=== PATIENT | female | born 1980 | race Caucasian/White ===

== ENCOUNTER → 2016-06-18 | Outpatient (CLI) | payer OTHER | LOC: RAD 19:32 | PROVIDERS: ATTEND Podiatrist Foot Surgery | DX: M79.671 Pain in right foot (principal) | CPT/HCPCS: 73720; A9577 ==

== ENCOUNTER → 2016-06-24 | Outpatient (CLI) | payer OTHER | LOC: RAD 09:11 | PROVIDERS: ATTEND Podiatrist Foot Surgery | DX: M25.571 Pain in right ankle and joints of right foot (principal); G90.521 Complex regional pain syndrome I of right lower limb | CPT/HCPCS: 78315; A9503; Q9969 ==

== ENCOUNTER 2016-08-06 07:32 | Day surgery (SDC) | payer OTHER ==
[~2016-08-06 07:32] MED LIST: CLINDAMYCIN 600 MG/D5W RTU 600 MG/50 ML RTUPB IV PRN
[2016-08-06] MEDS ORDERED: MIDAZOLAM 2 MG/2 ML INJ ONE ×2 (09:00)
[2016-08-06] MEDS ORDERED: FENTANYL CITRATE INJ/PF 100 MCG/2 ML AMPUL ONE (09:01)
[2016-08-06] MEDS ORDERED: PROPOFOL INJ 200 MG/20 ML VIAL IV ONE (09:01)
[2016-08-06] MEDS ORDERED: LIDOCAINE 2% INJ (20 MG/ML) 20 ML MDV ONE (09:04)
[2016-08-06] MEDS ORDERED: BUPIVACAINE HCL 0.5 % INJ/PF 30 ML SDV ONE (09:04)
[2016-08-06] MEDS: NORMAL SALINE INJ/PF 0.9% 10 ML SDV ONE ×2 (10:36→10:46)
[2016-08-06] MEDS: BACITRACIN INJ 50,000 UNIT VIAL ONE ×2 (10:36→10:46)
[2016-08-06] MEDS: POLYMYXIN B SULFATE INJ 500000 UNIT VIAL ONE ×2 (10:36→10:46)
[2016-08-06] MEDS: BUPIVACAINE INJ/PF LIPOSOME/PF 266 MG/20 ML SDV ONE ×2 (10:40→10:45)
--- NOTE | 2016-08-06 12:03 | [facility] OPERATIVE REPORT E ---
[facility] Operative Report NAME: TUNDE GARCÍA AGE: 36Y DATE OF SURGERY: ROOM: PREOPERATIVE DIAGNOSIS: Pain in the first metatarsophalangeal joint, right foot. POSTOPERATIVE DIAGNOSIS: Pain in the first metatarsophalangeal joint, right foot. OPERATION: Open biopsy of the first metatarsal head, right foot. SURGEON: NISHA RIBEIRO DPM NETWORK ASSOCIATE: FRANCIA LONGORIA DPM PROCEDURE: Following induction of IV regional local anesthesia, the right foot and leg were prepped and draped in the usual sterile manner. Pneumatic tourniquet was inflated to 250 mmHg. After exsanguination of the limb with the Esmarch bandage, the surgical procedure was then performed. OPEN BIOPSY, FIRST METATARSAL HEAD, RIGHT FOOT: Attention was directed to the dorsal aspect of the first metatarsophalangeal joint where the original skin incision, which was approximately 4 cm in length was excised via sharp dissection. The capsule was then incised sharply in the same manner as the original skin incision, and it was done lateral-medial to the extensor hallucis longus tendon. The capsule was then freed medially and laterally from the bone. It was noted that there was a foreign body, a small piece of otrnnu-[id number]-[id number] material. It was approximately maybe a centimeter in length. This was sent to pathology to determine what it was. There was also a yellowish inflammatory fluid that was noted in the joint, and this was cultured. Utilizing a Jamshidi bone biopsy, biopsy was taken from the dorsolateral aspect of the first metatarsal head and another bone biopsy was taken from the dorsomedial aspect of the first metatarsal head. Biopsies were then sent for pathology and for culture. The area was then flushed with copious amounts of antibacterial saline solution. The capsule was then coapted and maintained utilizing simple interrupted sutures of 3-0 Vicryl. The subcutaneous tissue was then infiltrated along the entire incision; approximately 10 mL of Exparel. The subcutaneous tissue was coapted and maintained utilized simple interrupted sutures of 4-0 Vicryl, and the skin was coapted and maintained utilizing horizontal mattress sutures of 5-0 nylon. The foot was then cleansed utilizing an alcohol foam. Dry sterile dressing was then applied consisting of George silk, 4 x 4s, Conform, Kerlix, and Coban. The pneumatic tourniquet was released. It was noted that all digits were warm and viable, and patient was transferred to the recovery room. DICTATING PHYSICIAN: NISHA RIBEIRO D.P.M. [id number] PHY#: [id number] ID: [id number] JOB#: [id number] ACCT: [id number] cc:SAMANTHA ANTONIO DPM >
--- NOTE | 2016-08-06 12:11 | [facility] DISCHARGE SUMMARY E ---
[facility] Discharge Summary NAME: TUNDE GARCÍA AGE: 36Y ADMITTED: 08/06/2016 DISCHARGED: 08/06/2016 SURGICAL PROCEDURE: Open bone biopsy first metatarsal head, right foot. POSTOPERATIVE DIAGNOSIS: Chronic pain in the first metatarsophalangeal joint, right foot. HOSPITAL COURSE: The patient was admitted to [facility] with chief complaint of chronic pain in the first metatarsophalangeal joint and along the first metatarsal of her right foot. She had undergone a simple bunionectomy in the end of February of 2016 at [facility] and she had been complaining of continued pain throughout. The patient had a MRI and bone scan. The MRI showed that there could be a possible foreign body and it was also determined to do bone biopsies at that time. The underwent the above surgical procedure without any complications and was transferred to the recovery room. She was discharged with a surgical shoe, an ice pack, postoperative instructions, and postoperative prescriptions for Percocet 5/325 mg, #60 and Phenergan 25 mg, #30. She was given a followup appointment in doctors office in 1 week and she was discharged from [facility]. DICTATING PHYSICIAN: NISHA RIBERIO D.P.M. [id number] PHY#: [id number] ID: [id number] JOB#: [id number] ACCT: [id number] cc:NISHA RIBEIRO DPM >
[2016-08-06] MEDS ORDERED: NORMAL SALINE INJ/PF 0.9% 10 ML SDV ONE (12:20)
== END 2016-08-06 12:50 | disposition home or self-care (01) ==
LOC: SC 07:32
PROVIDERS: ATTEND Podiatrist Foot Surgery
PROC: 0QBN0ZX Excision of Right Metatarsal, Open Approach, Diagnostic (ICD-10-PCS; principal; 2016-08-06 08:45)
DX: M25.571 Pain in right ankle and joints of right foot (principal); L57.0 Actinic keratosis; J45.909 Unspecified asthma, uncomplicated; K21.9 Gastro-esophageal reflux disease without esophagitis; Z88.0 Allergy status to penicillin; Z88.5 Allergy status to narcotic agent; Z79.899 Other long term (current) drug therapy
CPT/HCPCS: 87070 ×2; 87205; 87101; 87075; 88305 ×2; 73620; 20240; J2250; J3490 ×4; J2704; C9290; 01480; J3010

== ENCOUNTER 2016-12-18 10:37 | Emergency (ER) | payer OTHER ==
--- NOTE | 2016-12-18 11:01 | ER Document Report ---
ED GI/ - General Chief Complaint: Abdominal Pain Stated Complaint: ABDOMINAL PAIN Time Seen by Provider: 12/18/16 11:00 Mode of Arrival: Ambulatory Information source: Patient Notes: Patient states they have a ride home and are not driving. Patient is a 36-year- old female who presents to the ER today for 3-4 days of left lower quadrant pain with left upper quadrant pain. Patient states that it is sharp, comes and goes and many years ago. She denies any nausea, vomitingIs a stabbing sensation. Patient has a history of bleeding ulcers that put her in the ICU for a week or blood in her stool. She denies any fevers or chills. She denies alcohol use. She is unsure if she has a history of ovarian cysts. She denies any dysuria, vaginal discharge. She does state that the left upper quadrant pain seems to radiate to her Left shoulder. TRAVEL OUTSIDE OF THE [place] IN LAST 30 DAYS: No - Related Data Allergies/Adverse Reactions: hydromorphone HCl [From Dilaudid] Allergy (Severe, Verified 12/18/16 10:42) Anaphylaxis penicillin G [Penicillin G] Allergy (Severe, Verified 12/18/16 10:42) Anaphylaxis tramadol [Tramadol] Allergy (Severe, Verified 12/18/16 10:42) Anaphylaxis Past Medical History - General Information source: Patient - Social History Smoking Status: Unknown if Ever Smoked Family History: None, Reviewed & Not Pertinent - Past Medical History Cardiac Medical History: Reports: Hx Heart Murmur Denies: Hx Heart Attack, Hx Hypertension Pulmonary Medical History: Reports: Hx Asthma - CHILD Neurological Medical History: Denies: Hx Cerebrovascular Accident, Hx Seizures Endocrine Medical History: Reports: Hx Hypothyroidism - medication since Renal/ Medical History: Denies: Hx Peritoneal Dialysis GI Medical History: Reports: Hx Ulcer - STOMACH. 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 Denies: Hx Hysterectomy, Hx Mastectomy, Hx Pacemaker - Immunizations Immunizations up to date: Yes Hx Diphtheria, Pertussis, Tetanus Vaccination: Yes Review of Systems - Review of Systems Constitutional: No symptoms reported EENT: No symptoms reported Cardiovascular: No symptoms reported Respiratory: No symptoms reported Gastrointestinal: See HPI Genitourinary: No symptoms reported Female Genitourinary: No symptoms reported Musculoskeletal: No symptoms reported Skin: No symptoms reported Hematologic/Lymphatic: No symptoms reported Neurological/Psychological: No symptoms reported Physical Exam - Vital signs Vitals: Temp Pulse Resp BP Pulse Ox 98.0 F 68 20 123/60 98 12/18/16 10:42 12/18/16 10:42 12/18/16 10:42 12/18/16 10:42 12/18/16 10:42 - Notes Notes: PHYSICAL EXAMINATION: GENERAL: Uncomfortable appearing, but in no acute distress. HEAD: Atraumatic, normocephalic. EYES: Pupils equal round and reactive to light, extraocular movements intact, sclera anicteric, conjunctiva are normal. NECK: Normal range of motion, supple without lymphadenopathy LUNGS: CTAB and equal. No wheezes rales or rhonchi. HEART: Regular rate and rhythm without murmurs ABDOMEN: Soft, epigastric, left upper quadrant, left lower quadrant, suprapubic tenderness. No guarding, no rebound BACK: no vertebral tenderness, normal ROM GI/: no CVA tenderness EXTREMITIES: Normal range of motion, no pitting edema. No cyanosis. NEUROLOGICAL: Cranial nerves grossly intact. Normal sensory/motor exams. PSYCH: Normal mood, normal affect. SKIN: Warm, Dry, normal turgor, no rashes or lesions noted Course - Re-evaluation Re-evalutation: 12/18/16 17:20 Lipase is normal today, CAT scan reveals a left ovarian cyst, pancreas appears normal. Patient does have a history of stomach ulcers and did have epigastric pain. 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 She is afebrile with a normal white blood cell count today. - Vital Signs Vital signs: Temp Pulse Resp BP Pulse Ox 98.0 F 59 L 17 108/62 100 12/18/16 10:42 12/18/16 13:16 12/18/16 13:16 12/18/16 13:16 12/18/16 13:16 - Laboratory Result Diagrams: 12/18/16 11:46 12/18/16 11:46 Laboratory results interpreted by me: 12/18/16 11:46 Hgb 11.1 L Hct 32.1 L Discharge - Discharge Clinical Impression: Epigastric pain, Left ovarian cyst Condition: Stable Disposition: HOME, SELF-CARE Additional Instructions: Return immediately for any new or worsening symptoms. Follow up with primary care provider, call tomorrow to make followup appointment. Prescriptions: Esomeprazole Magnesium [Nexium] 20 mg PO DAILY #30 capsule. Sucralfate [Carafate 1 gm Tablet] 1 gm PO ACHS #40 tablet
[2016-12-18] MEDS ORDERED: KETOROLAC TROMETHAMINE INJ/PF 30 MG/1 ML SDV IV ONE (11:19)
[2016-12-18 12:08] LABS: ABSOLUTE EOSINOPHILS # (AUTO) 0.1 10^3/uL (0.0-0.6); ABSOLUTE LYMPHOCYTES (AUTO) 1.5 10^3/uL (0.5-4.7); ABSOLUTE MONOCYTES (AUTO) 0.4 10^3/uL (0.1-1.4); ABSOLUTE NEUT (AUTO) 3.6 10^3/uL (1.7-8.2); BASOPHILS % (AUTO) 0.7 % (0-2); EOSINOPHILS % (AUTO) 1.3 % (0-6); HEMATOCRIT 32.1 % (36.0-47.0); HEMOGLOBIN 11.1 g/dL (12.0-15.5); HGB HCT DIFFERENCE 1.2; MEAN CORPUSCULAR HEMOGLOBIN 28.4 pg (27.0-33.4); MEAN CORPUSCULAR HGB CONC 34.5 g/dL (32.0-36.0); MEAN CORPUSCULAR VOLUME 82 fl (80-97); MONOCYTES % (AUTO) 6.5 % (3-13); RED CELL DISTRIBUTION WIDTH 13.7 % (11.5-14.0); SEGMENTED NEUTROPHILS % (AUTO) 64.5 % (42-78); WHITE BLOOD COUNT 5.6 10^3/uL (4.0-10.5)
[2016-12-18 12:28] LABS: ALANINE AMINOTRANSFERASE 29 U/L (9-52); ALBUMIN 4.2 g/dL (3.5-5.0); ALKALINE PHOSPHATASE 65 U/L (38-126); ANION GAP 11 (5-19); ASPARTATE AMINO TRANSFERASE 26 U/L (14-36); BILIRUBIN,DIRECT 0.3 mg/dL (0.0-0.4); BILIRUBIN,TOTAL 1.2 mg/dL (0.2-1.3); BLOOD UREA NITROGEN 15 mg/dL (7-20); CALCIUM 9.6 mg/dL (8.4-10.2); CARBON DIOXIDE 25 mmol/L (22-30); CHLORIDE 104 mmol/L (98-107); CREATININE RESULT 0.61 mg/dL (0.52-1.25); GLUCOSE 82 mg/dL (75-110); POTASSIUM 4.1 mmol/L (3.6-5.0); SODIUM 140.2 mmol/L (137-145); TOTAL PROTEIN 6.5 g/dL (6.3-8.2)
[2016-12-18 12:42] LABS: APPEARANCE,URINE CLEAR; BILIRUBIN,URINE NEGATIVE (NEGATIVE); GLUCOSE, URINE NEGATIVE (NEGATIVE); KETONES,URINE NEGATIVE (NEGATIVE); LEUKOCYTE ESTERASE,URINE NEGATIVE (NEGATIVE); NITRITE,URINE NEGATIVE (NEGATIVE); PROTEIN,URINE NEGATIVE (NEGATIVE); URINE SPECIFIC GRAVITY 1.003; UROBILINOGEN,URINE NEGATIVE mg/dL (<2.0)
--- NOTE | 2016-12-18 12:47 | RADIOLOGY REPORT (SQ) ---
EXAM DESCRIPTION: CT ABD/PELVIS WITH IV ONLY COMPLETED DATE/TIME: 12/18/2016 12:28 pm REASON FOR STUDY: luq, llq abd pain, sharp COMPARISON: None. TECHNIQUE: CT scan of the abdomen and pelvis performed using helical scanning technique with dynamic intravenous contrast injection. No oral contrast. Images reviewed with lung, soft tissue, and bone windows. Reconstructed coronal and sagittal MPR images reviewed. Delayed images for evaluation of the urinary system also acquired. All images stored on PACS. All CT scanners at this facility use dose modulation, iterative reconstruction, and/or weight based d osing when appropriate to reduce radiation dose to as low as reasonably achievable (ALARA). [facility]: Dose Right [facility]: CareDose [facility]: Dose Right [facility]: Teradose 4D [facility]: Evergig CONTRAST TYPE AND DOSE: contrast/concentration: Isovue 370.00 mg/ml; Total Contrast Delivered: 82.0 ml; Total Saline Delivered: 68.0 ml RENAL FUNCTION: None required. The patient is less than 50 years old. RADIATION DOSE: Up-to-date CT equipment and radiation dose reduction techniques were employed. CTDIv ol: 9.8 - 14.0 mGy. DLP: 1144 mGy-cm.. LIMITATIONS: None. FINDINGS: LOWER CHEST: No significant findings. No nodules or infiltrates. LIVER: Normal size. No masses. No dilated ducts. SPLEEN: Normal size. No focal lesions. PANCREAS: No masses. No significant calcifications. No adjacent inflammation or peripancreatic fluid collections. Pancreatic duct not dilated. GALLBLADDER: No identified stones by CT criteria. No inflammatory changes to suggest cholecystitis. ADRENAL GLANDS: No significant masses or asymmetry. RIGHT KIDNEY AND URETER: No solid masses. No significant calcifications. No hydronephrosis or hyd roureter. LEFT KIDNEY AND URETER: No solid masses. No significant calcifications. No hydronephrosis or hydr oureter. AORTA AND VESSELS: No aneurysm. No dissection. Renal arteries, SMA, celiac without stenosis. RETROPERITONEUM: No retroperitoneal adenopathy, hemorrhage or masses. BOWEL AND PERITONEAL CAVITY: No masses or inflammatory changes. No free fluid or peritoneal masses. APPENDIX: Surgically absent. PELVIS: The urinary bladder is normal. The uterus is normal for age. There is an 18 mm left ovarian cyst. ABDOMINAL WALL: No masses. No hernias. BONES: A couple small cysts are seen in the right ilium. No acute abnormality is seen in bones. OTHER: No other significant finding. IMPRESSION: The study is essentially normal. There is a small left ovarian cyst and there are coupl e of small cysts in the right ilium. TECHNICAL DOCUMENTATION: JOB ID: [id number] Quality ID # [id number]: Final reports with documentation of one or more dose reduction techniques (e.g., Au tomated exposure control, adjustment of the mA and/or kV according to patient size, use of iterative reconstruction technique) 2010 [employer]- All Rights Reserved
[2016-12-18] MEDS ORDERED: HYDROCODONE/ACETAMINOPHEN 5-325 MG 6 TAB/DSPK PO PRN (13:01)
[2016-12-18 13:17] VITALS: BP 108/62
== END 2016-12-18 13:18 | disposition home or self-care (01) ==
LOC: ER 10:37
DX: N83.202 Unspecified ovarian cyst, left side (principal); R10.13 Epigastric pain; R10.32 Left lower quadrant pain
CPT/HCPCS: 99284; 96374; 36415; 83690; 85025; 80053; 81001; 74177; J1885

== ENCOUNTER 2017-04-30 22:25 | Emergency (ER) | payer OTHER ==
[2017-04-30] MEDS ORDERED: METHYLPREDNISOLONE INJ 125 MG/2 ML SDV IV ONE (23:02)
[2017-04-30] MEDS ORDERED: DIPHENHYDRAMINE HCL 50 MG/ML VIAL IV ONE (23:02)
[2017-04-30] MEDS ORDERED: FAMOTIDINE INJ/PF 20 MG/2 ML SDV IV ONE (23:02)
[2017-04-30] MEDS ORDERED: EPINEPHRINE INJ/PF 1 MG/1 ML AMPULE IM ONE (23:05)
--- NOTE | 2017-04-30 23:07 | ER Document Report ---
ED Medical Screen (RME) - General Chief Complaint: Allergic Reaction Stated Complaint: POSSIBLE ALLERGIC REACTION Time Seen by Provider: 04/30/17 23:02 Mode of Arrival: Ambulatory Information source: Patient Notes: Patient states that she was administering her allergy shots that she typically does each week. States that almost immediately after the injection she started to have itching, rash and feeling pressure in her ears. Patient complains of feeling as though she is having swelling in her throat. hx: Allergies, VSD repair I have greeted and performed a rapid initial assessment of this patient. A comprehensive ED assessment and evaluation of the patient, analysis of test results and completion of the medical decision making process will be conducted by additional ED providers. TRAVEL OUTSIDE OF THE [place] IN LAST 30 DAYS: No - Related Data Allergies/Adverse Reactions: hydromorphone HCl [From Dilaudid] Allergy (Severe, Verified 04/30/17 23:02) Anaphylaxis penicillin G [Penicillin G] Allergy (Severe, Verified 04/30/17 23:02) Anaphylaxis tramadol [Tramadol] Allergy (Severe, Verified 04/30/17 23:02) Anaphylaxis Past Medical History - Social History Frequency of alcohol use: None Drug Abuse: None Family history: Reviewed & Not Pertinent - Past Medical History Cardiac Medical History: Reports: Hx Heart Murmur Denies: Hx Heart Attack, Hx Hypertension Pulmonary Medical History: Reports: Hx Asthma - CHILD Neurological Medical History: Denies: Hx Cerebrovascular Accident, Hx Seizures Endocrine Medical History: Reports: Hx Hypothyroidism - medication since Renal/ Medical History: Denies: Hx Peritoneal Dialysis GI Medical History: Reports: Hx Ulcer - STOMACH. 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 Denies: Hx Hysterectomy, Hx Mastectomy, Hx Pacemaker - Immunizations Immunizations up to date: Yes Hx Diphtheria, Pertussis, Tetanus Vaccination: Yes Physical Exam - Vital signs Vitals: Temp Pulse Resp BP Pulse Ox 97.9 F 63 20 131/56 H 97 04/30/17 22:40 04/30/17 22:40 04/30/17 22:40 04/30/17 22:40 04/30/17 22:40 - HEENT Pharynx: Uvular edema. No: Potential airway comprom. - Respiratory Respiratory status: No respiratory distress Breath sounds: Normal - Cardiovascular Rhythm: Regular Heart sounds: S1 appreciated, S2 appreciated Murmur: Yes Course - Vital Signs Vital signs: Temp Pulse Resp BP Pulse Ox 97.9 F 63 20 131/56 H 97 04/30/17 22:40 04/30/17 23:03 04/30/17 22:40 04/30/17 22:40 04/30/17 22:40
--- NOTE | 2017-05-01 00:23 | ER Document Report ---
HPI - HPI Patient complains to provider of: Check reaction Onset: Just prior to arrival Onset/Duration: Sudden Quality of pain: Achy Pain Level: 3 Context: Patient states that she was administering her weekly allergy shot just prior to arrival. Patient states that soon after her injection she started to have itching and rash that developed. Patient did take 25 mg of Benadryl at home. Patient complains of feeling a clogged pressure in her ears and feels as though her throat may be swelling. Patient denies any difficulty breathing. Associated Symptoms: Other - Skin rash, itching. denies: Nonproductive cough, Productive cough Exacerbated by: Denies Relieved by: Denies Similar symptoms previously: No Recently seen / treated by doctor: No - ROS ROS below otherwise negative: Yes Systems Reviewed and Negative: Yes All other systems reviewed and negative - CONSTITUTIONAL Constitutional: DENIES: Fever - EENT EENT: REPORTS: Congestion. DENIES: Sore Throat - NEURO Neurology: DENIES: Headache - CARDIOVASCULAR Cardiovascular: DENIES: Chest pain - RESPIRATORY Respiratory: DENIES: Trouble Breathing, Coughing - REPRODUCTIVE Reproductive: DENIES: : - DERM Skin Color: Erythema Skin Problems: Rash Past Medical History - General Information source: Patient - Social History Smoking Status: Never Smoker Frequency of alcohol use: None Drug Abuse: None Lives with: Family Family History: None, Reviewed & Not Pertinent Patient has suicidal ideation: No Patient has homicidal ideation: No - Past Medical History Cardiac Medical History: Reports: Hx Heart Murmur Denies: Hx Heart Attack, Hx Hypertension Pulmonary Medical History: Reports: Hx Asthma - CHILD Neurological Medical History: Denies: Hx Cerebrovascular Accident, Hx Seizures Endocrine Medical History: Reports: Hx Hypothyroidism - medication since Renal/ Medical History: Denies: Hx Peritoneal Dialysis GI Medical History: Reports: Hx Ulcer - STOMACH. 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 Denies: Hx Hysterectomy, Hx Mastectomy, Hx Pacemaker - Immunizations Immunizations up to date: Yes Hx Diphtheria, Pertussis, Tetanus Vaccination: Yes Vertical Provider Document - CONSTITUTIONAL Agree With Documented VS: Yes Exam Limitations: No Limitations General Appearance: WD/WN, No Apparent Distress - INFECTION CONTROL TRAVEL OUTSIDE OF THE [place] IN LAST 30 DAYS: No - HEENT HEENT: Atraumatic, Normocephalic. negative: Pharyngeal Exudate, Pharyngeal Tenderness, Pharyngeal Erythema, Tympanic Membrane Red, Tympanic Membrane Bulging Notes: uvula swelling Normal speech, patient able to manage her oral secretions - NECK Neck: Normal Inspection, Supple. negative: Lymphadenopathy-Left, Lymphadenopathy-Right - RESPIRATORY Respiratory: Breath Sounds Normal, No Respiratory Distress. negative: Wheezing O2 Sat by Pulse Oximetry: 97 - CARDIOVASCULAR Cardiovascular: Regular Rate, Regular Rhythm, No Murmur - BACK Back: Normal Inspection - MUSCULOSKELETAL/EXTREMETIES Musculoskeletal/Extremeties: MAEW - NEURO Level of Consciousness: Awake, Alert, Appropriate Motor/Sensory: No Motor Deficit - DERM Integumentary: Warm, Dry, Rash - Diffuse urticarial rash to face, trunk and extremities Course - Re-evaluation Re-evalutation: 05/01/17 00:22 Patient's respirations unlabored. Patient's rash almost completely resolved. Uvula edema appears modestly improved. Patient reports feeling much better 05/01/17 01:54 Breath sounds clear bilaterally, completely resolved. Patient with some tenderness and mild erythema to right upper arm at site of her allergy injection. Patient without any signs concerning for angioedema. Patient appears to be stable for discharge. Patient does report she has an epinephrine pen at home but is uncertain if it may be . Discussed management of symptoms and worsening symptoms that she should return immediately for or call [phone]. - Vital Signs Vital signs: Temp Pulse Resp BP Pulse Ox 97.9 F 63 20 131/56 H 97 04/30/17 22:40 04/30/17 23:03 04/30/17 22:40 04/30/17 22:40 04/30/17 22:40 Discharge - Discharge Clinical Impression: Allergic reaction Qualifiers: Encounter type: initial encounter Qualified Code(s): T78.40XA - Allergy, unspecified, initial encounter Condition: Stable Disposition: HOME, SELF-CARE Additional Instructions: Return immediately for any new or worsening symptoms Followup with your primary care provider, call tomorrow to make a followup appointment ACUTE ALLERGIC REACTION: Your symptoms are due to an allergic reaction. Allergy can cause hives, swelling of the hands, feet, and face, hoarseness, and difficulty swallowing or breathing. It may be due to exposure to medication, animal dander, foods, infection, or insect bites. Medication is a common cause, even when prior use of this same medication caused no problems. Acute treatment may include adrenalin and antihistamines. Usually, the specific allergic agent can't be identified unless repeated episodes occur. Home treatment includes the following: (1) Stop any suspicious medications. This will be discussed with you. (2) Oral antihistamines for the next four to five days. Example, diphenhydramine (Benadryl) every four hours. (3) You may also use cimetidine (Tagamet), ranitidine (Zantac), or famotidine ( Pepcid) every four hours if diphenhydramine is not controlling itching and hives. (4) Avoid aspirin until the hives completely disappear. (5) Avoid hot baths or showers until the hives are completely gone. Call the doctor if faintness, difficulty swallowing, tightness in the chest , or wheezing occurs. EPINEPHRINE: An injection of epinephrine (also called adrenalin) is used to treat allergic reactions, asthma, and some other medical conditions. It is a stimulant medication that consticts blood vessels, relaxes smooth muscles such as in the bronchioles of the lung, elevates blood pressure, and increases heart rate. It can temporarily make you feel very nervous and shakey, but it's affects last only a short time, about 15 to 30 minutes at most. STEROID MEDICATION INJECTION: You have been given an injection of medicine of the cortisone/steroid class. This medication is used to control inflammation or allergy. It is often continued as a pill for a short period of time, until the acute process subsides. There are usually no side effects from short-term use of cortisone-like medications. Some persons feel an increased sense of well-being and are not sleepy at bedtime. Long-term use of cortisone medications is best avoided, unless required for a severe condition. If your condition does not remit, or relapses after the course of corticosteroid medication, you should consult your physician. STEROID MEDICATION: You have been given a medicine of the cortisone/steroid class. This medication is used to control inflammation or allergy. It is usually only given for a short period of time, until the acute process subsides. There are usually no side effects from short-term use of cortisone-like medications. Some persons feel an increased sense of well-being and are not sleepy at bedtime. Long-term use of cortisone medications is best avoided, unless required for a severe condition. If your condition does not remit, or relapses after the course of corticosteroid medication, you should consult your physician. ACID-SUPPRESSING MEDICATION: You have a prescription for medicine which reduces the stomach's secretion of acid. Examples include Zantac, Tagament, and Pepcid. These drugs are often used to allow healing of ulcers or esophagitis. They may be needed to prevent recurrence of ulcers in some patients, or to prevent damage from acid reflux in the esophagus. Take all medication as prescribed, even after the pain is gone. Regular antacids may be added as needed if you have symptoms while taking this medicine. These medications sometimes are prescribed for allergic reactions because they have anti-histaminic effects and relieve the rash and itching of the reaction. There are usually no side effects from this medication. But, in rare cases and particularly in the elderly, serious problems can occur. Contact your doctor if there is fever, rash, hallucinations, confusion, or unusual bruising. Contact your doctor at once if you develop lightheadedness, black or bloody stool, or bloody vomitus. ANTIHISTAMINES: An antihistamine has been given and/or prescribed to control your symptoms. Antihistamines are used for many reasons, including itching, watering eyes, runny nose, allergic swelling, hives, and insect stings. Antihistamines may cause drowsiness, especially with the first dose. Do not operate machinery or drive while under the effects of the medication. Other common side effects include dry mouth and eyes. In older persons, antihistamines can occasionally cause urinary retention, constipation, and trouble focusing the eyes. Do not combine the medication with alcohol, or with any other medication without talking to your doctor. USE OF DIPHENHYDRAMINE: The use of diphenhydramine (Benadryl) has been recommended to control allergic symptoms. The 25 mg strength is available over- the-counter, as well as the elixir. This antihistamine is used for many symptoms. It's useful for itching, watering eyes and nose, allergic swelling, hives, and insect stings. The medication can be repeated four times daily. Age Elixir (12.5 mg/tsp) 25 mg pill 2-3 yr 1/2 tsp 4-8 yr 1 tsp 9-14 yr 2 tsp one tab adult 1-2 tabs Antihistamines may cause drowsiness, especially with the first dose. Do not operate machinery or drive while under the effects of the medication. Do not combine the medication with alcohol, or with any other medication without talking to your doctor. FOLLOW-UP CARE: If you have been referred to a physician for follow-up care, call the physician s office for an appointment as you were instructed or within the next two days. If you experience worsening or a significant change in your symptoms, notify the physician immediately or return to the Emergency Department at any time for re-evaluation. Prescriptions: Epinephrine [Epipen 2-Johnny] 0.3 mg IM ASDIR PRN #1 unit PRN Reason: Famotidine [Pepcid 20 mg Tablet] 20 mg PO BID #12 tablet Prednisone [Deltasone 20 mg Tablet] 3 tab PO DAILY 4 Days tablet
[2017-05-01 02:11] VITALS: BP 124/70
== END 2017-05-01 02:04 | disposition home or self-care (01) ==
LOC: ER 22:25
DX: L50.0 Allergic urticaria (principal)
CPT/HCPCS: 99283; 96374; 96375; J1200; J0171; J2930; S0028